=== PATIENT | female | born 1950 | race Caucasian/White ===

== ENCOUNTER → 2017-02-06 | Outpatient (CLI) | payer MEDICARE, OTHER ==
[~2017-02-06] MED LIST: ATEN25TA PO; ATOR40TA16 PO; AZIT250T3 PO; BENZ100 PO; BUPR100T4 PO; CYCL1TAB29 PO; CYMB60CA PO; HYDR-3533 PO; NEUR100C PO; XANA1TAB2 PO
[2017-02-06 17:38] LABS: AUTOMATED NEUTROPHIL # 4.1 TH/MM3 (1.8-7.7); BASOPHIL # 0.1 TH/MM3 (0-0.2); BASOPHIL % 1.1 % (0.0-2.0); EOSINOPHIL # 0.2 TH/MM3 (0-0.4); EOSINOPHIL % 3.1 % (0.0-4.0); HEMATOCRIT 44.3 % (35.0-46.0); HEMO FLAGS DIFF FINAL; LYMPH % 22.7 % (9.0-44.0); LYMPHOCYTE # 1.4 TH/MM3 (1.0-4.8); MEAN CELL VOLUME 83.1 FL (80.0-100.0); MEAN CORPUSCULAR HGB CONC 33.7 % (32.0-36.0); MONO % 8.8 % (0.0-8.0); NEUT % 64.3 % (16.0-70.0); PLATELET COUNT 244 TH/MM3 (150-450); RED BLOOD COUNT 5.33 MIL/MM3 (4.00-5.30); RED CELL DISTRIBUTION WIDTH 13.5 % (11.6-17.2); WHITE BLOOD COUNT 6.3 TH/MM3 (4.0-11.0)
[2017-02-06 18:26] LABS: FREE T3 2.42 PG/ML (2.18-3.98); FREE T4 0.89 NG/DL (0.76-1.46)
[2017-02-08 23:53] LABS: THYROGLOB ABS LESS THAN 1 IU/mL (< OR = 1)
== END ==
LOC: PLAB 14:17
PROVIDERS: ATTEND Family Medicine
DX: R05 Cough (principal); R53.83 Other fatigue
CPT/HCPCS: 36415; 84439; 84443; 84481; 85025; 86376; 86800; 86850; 86900; 86901

== ENCOUNTER 2017-09-07 12:34 | Emergency (ER) | payer MEDICARE, OTHER ==
[~2017-09-07] VITALS: Ht 162.6 cm; Wt 76.0 kg
[~2017-09-07 12:34] MED LIST changes: -AZIT250T3 PO; -BENZ100 PO; +CYCL10TA PO; -CYCL1TAB29 PO
[2017-09-07 12:39] VITALS: BP 155/57; PULSE 68; RESP 18; TEMP 98.1; O2SAT 98
--- NOTE | 2017-09-07 14:44 | PD ---
HPI . Wound check Chief Complaint: Skin Problem Time Seen by Provider: 14:20 Travel History International Travel<30 days: No Contact w/Intl Traveler<30days: No Traveled to known affect area: No History of Present Illness HPI Patient presents for a wound check. She states that she is status post biopsy 2 on her left lower extremity on 08/30. She presents to us today concerned that it is infected. She states that her investigations manager is unavailable to see her until next week. She states that she is concerned for infection because the appearance of the wound is changing. She states that it seems to be expanding and is changing colors and is firm to the touch. 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) Cardiac Catheterization: Yes Cardiovascular Problems: Yes (TRIPLE 1999) High Cholesterol: Yes Chemotherapy: No Chest Pain: Yes Congestive Heart Failure: No Cerebrovascular Accident: No Coronary Artery Disease: Yes Diabetes: No Diminished Hearing: No Endocrine: No Gastrointestinal Disorders: No GERD: Yes Genitourinary: No Headaches: Yes Hepatitis: No Hiatal Hernia: No Hypertension: Yes Immune Disorder: No Implanted Vascular Access Dvce: No Musculoskeletal: No Neurologic: Yes Psychiatric: No Reproductive: No Respiratory: No Immunizations Current: Yes Migraines: No Myocardial Infarction: Yes Radiation Therapy: No Seizures: No Thyroid Disease: No PNEUMOCCOCAL Vaccine (Year): 1 Menopausal: Yes Tubal Ligation: Yes Past Surgical History Abdominal Surgery: No Cardiac Surgery: Yes (CABG- 3 VESSEL ) Coronary Artery Bypass Graft: Yes (3 VESSEL 10 YEARS AGO) Coronary Stent: Yes (1997) Ear Surgery: No Endocrine Surgery: No Eye Surgery: No Genitourinary Surgery: No Gynecologic Surgery: Yes (TUBAL LIG., LASH; (VAGINAL HYSTERECTOMY)) Hysterectomy: Yes Oral Surgery: No Pacemaker: No Thoracic Surgery: Yes (CABG) Tonsillectomy: Yes ( CHILD) Other Surgery: Yes (TRIPLE BYPASS IN 1997) Social History Alcohol Use: No Tobacco Use: No Substance Use: No Allergies-Medications (Allergen,Severity, Reaction): Coded Allergies: diatrizoate meglumine (Unverified Allergy, Severe, N&V, 05/31/17) diatrizoate sodium (Unverified Allergy, Severe, N&V, 05/31/17) Sulfa (Sulfonamide Antibiotics) (Unverified Allergy, Intermediate, N&V, ) codeine (Unverified Allergy, Mild, 05/31/17) Reported Meds & Prescriptions Reported Meds & Active Scripts Active Xanax (Alprazolam) 1 Mg Tab 0.5 Mg PO HS PRN Bupropion HCl 100 Mg Tab 150 Mg PO TID Take 150mg three times a day Neurontin (Gabapentin) 100 Mg Cap 100 Mg PO BID Flexeril (Cyclobenzaprine HCl) 10 Mg Tab 10 Mg PO HS take 1/2 tab to 1 tab at night for muscle spasm Atenolol 25 Mg Tab 25 Mg PO DAILY Cymbalta DR (Duloxetine HCl) 60 Mg Capdr 60 Mg PO BID Atorvastatin (Atorvastatin Calcium) 40 Mg Tab 40 Mg PO HS Reported Lortab (Hydrocodone-Acetaminophen) 5-325 Mg Tab 1 Tab PO Q4H PRN Review of Systems Except as stated in HPI: all other systems reviewed are Neg Physical Exam Narrative GENERAL: Awake and alert. Histrionic. SKIN: Warm and dry. She has 2 healing biopsy wounds on her left lower leg. Both of them have some associated induration and discoloration. There is no purulent drainage. The surrounding skin is not red or hot. HEAD: Normocephalic/atraumatic. EYES: Pupils are equal. Extraocular movements are intact. NECK: Normal range of motion. RESPIRATORY: Nonlabored respirations. MUSCULOSKELETAL: Atraumatic. NEUROLOGICAL: Nonfocal. PSYCHIATRIC: Histrionic. Data Data Last Documented VS Vital Signs Date Time Temp Pulse Resp B/P (MAP) Pulse Ox O2 Delivery O2 Flow Rate FiO2 09/07/17 12:39 98.1 68 18 155/57 (89) 98 MDM Medical Decision Making Medical Screen Exam Complete: Yes Emergency Medical Condition: Yes Differential Diagnosis My differential diagnosis of a wound check includes but is not limited to normal healing, delayed healing, localized wound infection, cellulitis, sepsis Narrative Course This patient presents requesting a wound check. She is status post biopsy 2 from her left lower extremity on 08/30. She states that her investigations manager is unavailable to see her until next week. On exam, she has wounds which have the expected appearance for 7-10 days post procedure. Diagnosis Primary Impression: Visit for wound check Patient Instructions: General Instructions Disposition: DISCHARGE HOME Condition: Stable Annabella Arguelles MD Sep 07, 2017 14:44
== END 2017-09-07 15:12 | disposition home or self-care (01) ==
LOC: NEPD 12:34
DX: Z48.00 Encounter for change or removal of nonsurgical wound dressing (principal)
CPT/HCPCS: 99281

== ENCOUNTER → 2017-10-18 | Outpatient (CLI) | payer MEDICARE, OTHER | LOC: PLAB 11:41 | PROVIDERS: ATTEND Family Medicine | DX: Z11.59 Encounter for screening for other viral diseases (principal) | CPT/HCPCS: 36415; 86803 ==

== ENCOUNTER → 2017-10-25 | Outpatient (CLI) | payer MEDICARE, OTHER ==
[2017-10-25 14:46] LABS: BASOPHIL % 0.9 % (0.0-2.0); EOSINOPHIL # 0.1 TH/MM3 (0-0.4); EOSINOPHIL % 2.1 % (0.0-4.0); HEMATOCRIT 44.8 % (35.0-46.0); HEMOGLOBIN 14.9 GM/DL (11.6-15.3); LYMPHOCYTE # 1.2 TH/MM3 (1.0-4.8); MEAN CELL VOLUME 84.3 FL (80.0-100.0); MEAN CORPUSCULAR HEMOGLOBIN 28.1 PG (27.0-34.0); MEAN CORPUSCULAR HGB CONC 33.4 % (32.0-36.0); MEAN PLATELET VOLUME 9.1 FL (7.0-11.0); MONOCYTE # 0.4 TH/MM3 (0-0.9); PLATELET COUNT 208 TH/MM3 (150-450); RED BLOOD COUNT 5.31 MIL/MM3 (4.00-5.30); WHITE BLOOD COUNT 4.6 TH/MM3 (4.0-11.0)
[2017-10-25 14:55] LABS: ALT (GPT) 28 U/L (10-53); AST (GOT) 17 U/L (15-37); BICARBONATE 25.7 MEQ/L (21.0-32.0); BLOOD UREA NITROGEN 16 MG/DL (7-18); CALCIUM 8.7 MG/DL (8.5-10.1); CHLORIDE 109 MEQ/L (98-107); CHOLESTEROL 146 MG/DL (120-200); CREATININE 0.86 MG/DL (0.50-1.00); GLOMERULAR FILTRATION RATE 66 ML/MIN (>89); GLUCOSE,RANDOM 92 MG/DL (74-106); SODIUM (NA) 141 MEQ/L (136-145)
[2017-10-25 15:04] LABS: ALKALINE PHOSPHATASE 104 U/L (45-117); CHOLESTEROL/ HDL RATIO 3.31 RATIO; FREE T4 0.87 NG/DL (0.76-1.46); HDL CHOLESTEROL 44.1 MG/DL (40.0-60.0); LDL CHOLESTEROL 78 MG/DL (0-99); TOTAL BILIRUBIN ADULT 0.5 MG/DL (0.2-1.0); TOTAL PROTEIN 6.7 GM/DL (6.4-8.2); TRIGLYCERIDES 120 MG/DL (42-150)
[2017-10-25 15:09] LABS: RHEUMATOID FACTOR SCREEN NEGATIVE (NEGATIVE)
[2017-10-25 15:38] LABS: WESTERGREN SEDIMENTATION RATE 2 mm/hr (0-30)
== END ==
LOC: PLAB 09:12
PROVIDERS: ATTEND Family Medicine
DX: I10 Essential (primary) hypertension (principal); F41.1 Generalized anxiety disorder; M25.50 Pain in unspecified joint; E78.2 Mixed hyperlipidemia
CPT/HCPCS: 36415; 80053; 80061; 82043; 84439; 84443; 85025; 85652; 86038; 86430